=== PATIENT | female | born 1975 | race Two or more races ===

== ENCOUNTER → 2016-06-01 | Outpatient (CLI) | payer OTHER ==
--- NOTE | 2016-06-02 14:00 | MM ---
Reason for exam: screening (asymptomatic). Last mammogram was performed 1 year and 1 month ago. History: Took hormonal contraceptives for 6 years beginning at age 19. Physical Findings: A clinical breast exam by your physician is recommended on an annual basis and results should be correlated with mammographic findings. MG Screening Mammo w CAD Bilateral CC and MLO view(s) were taken. Prior study comparison: May 13, 2015, bilateral MG screening mammo w CAD. May 02, 2014, right breast MG work up mamm w CAD RT. April 28, 2014, bilateral MG screening mammo w CAD. The breast tissue is heterogeneously dense. This may lower the sensitivity of mammography. No significant changes when compared with prior studies. ASSESSMENT: Negative, BI-RAD 1 RECOMMENDATION: Routine screening mammogram of both breasts in 1 year.
== END | disposition home or self-care (01) ==
LOC: RADMAMWWP 16:49
PROVIDERS: ATTEND Family Medicine
DX: Z12.31 Encounter for screening mammogram for malignant neoplasm of breast (principal)

== ENCOUNTER 2016-10-05 12:09 | Day surgery (SDC) | payer OTHER ==
[2016-10-05] MEDS ORDERED: ALPRAZolam 0.5 MG TAB PO ONE (12:26)
[2016-10-05 12:50] VITALS: RESP 14; TEMP 97.8
[2016-10-05 13:37] VITALS: BP 103/63; PULSE 56
--- NOTE | 2016-10-05 13:46 | US ---
EXAMINATION TYPE: US FNA thyroid DATE OF EXAM: 10/05/2016 COMPARISON: NONE HISTORY: Thyroid nodule, E04.1 Maximal barrier technique was utilized. Ultrasound using sterile technique. The skin overlying the no dule was localized with ultrasound and the overlying skin prepped and draped. Lidocaine used for loca l anesthesia. 5 passes with a 25-gauge needle were made into the nodule under ultrasound guidance. As pirate specimen submitted to cytology. Following the procedure hemostasis achieved. No immediate comp lication IMPRESSION: Status post ultrasound-guided fine-needle aspiration of thyroid nodule, pathology pending .
== END 2016-10-05 13:45 | disposition home or self-care (01) ==
LOC: RADPROMAIN 12:09
PROVIDERS: ATTEND Surgery
DX: E04.1 Nontoxic single thyroid nodule (principal)
CPT/HCPCS: 10022; 76942; 88173; 88305

== ENCOUNTER → 2017-08-10 | Outpatient (CLI) | payer OTHER ==
--- NOTE | 2017-08-11 09:10 | MM ---
Reason for exam: screening (asymptomatic). Last mammogram was performed 1 year and 2 months ago. History: Took hormonal contraceptives for 6 years beginning at age 19. Physical Findings: A clinical breast exam by your physician is recommended on an annual basis and results should be correlated with mammographic findings. MG Screening Mammo w CAD Bilateral CC and MLO view(s) were taken. Prior study comparison: June 01, 2016, bilateral MG screening mammo w CAD. May 13, 2015, bilateral MG screening mammo w CAD. The breast tissue is heterogeneously dense. This may lower the sensitivity of mammography. There is no discrete abnormality. ASSESSMENT: Negative, BI-RAD 1 RECOMMENDATION: Routine screening mammogram of both breasts in 1 year.
== END | disposition home or self-care (01) ==
LOC: RADMAMWWP 13:05
PROVIDERS: ATTEND Family Medicine
DX: Z12.31 Encounter for screening mammogram for malignant neoplasm of breast (principal)
CPT/HCPCS: 77067

== ENCOUNTER → 2017-10-26 | Outpatient (CLI) | payer OTHER ==
--- NOTE | 2017-10-26 11:30 | US ---
EXAMINATION TYPE: US thyroid st tissue head/neck DATE OF EXAM: 10/26/2017 COMPARISON: Thyroid biopsy dated 10/05/2016 CLINICAL HISTORY: E04.1 THYROID NODULE. Thyroid nodule. Hx of biopsy - normal. GLAND SIZE: Right Lobe: 4.2 x 1.5 x 1.7 cm Overall Parenchyma: homogenous Left Lobe: 4.7 x 1.5 x 1.3 cm Overall Parenchyma: homogeneous Isthmus Thickness: 0.2 cm NODULES RIGHT: # of nodules measured on right: 1 1. 1.2 X 0.9 x 0.7 cm hypoechoic nodule at the lower pole with well-defined margins. This nodule is taller than wide and shows intranodular vascularity. Prior size: No previous LEFT: # of nodules measured on left: 1 1. 0.6 X 0.5 x 0.3 cm hypoechoic solid nodule at the lower pole with well-defined margins. This no dule is taller than wide and shows no intranodular vascularity. Prior size: No previous ISTHMUS: # of nodules measured in the isthmus: 0 Bilateral neck scanned. Left prominent lymph node appearing lesion - 1.8 x 0.6 x 0.6 cm IMPRESSION: Previously biopsied 1.2 cm right thyroid nodule and subcentimeter left thyroid nodule for which surve illance could be performed. Otherwise, the thyroid gland is homogeneous.
== END | disposition home or self-care (01) ==
LOC: RADUSWWP 09:43
PROVIDERS: ATTEND Surgery
DX: E04.2 Nontoxic multinodular goiter (principal)
CPT/HCPCS: 76536

== ENCOUNTER → 2019-03-04 | Outpatient (CLI) | payer OTHER ==
[2019-03-04 17:12] LABS: Chol/HDL Ratio 3.56; LDL Cholesterol,Calculated 111.6 mg/dL (0.0-131.0); VLDL Calculation 16.4 mg/dL (5.00-40.00)
[2019-03-04 18:30] LABS: Hemoglobin A1C 4.5 % (4.0-6.0)
== END ==
LOC: LABWHC1 10:29
PROVIDERS: ATTEND Nurse Practitioner Family
DX: Z00.00 Encounter for general adult medical examination without abnormal findings (principal); E55.9 Vitamin D deficiency, unspecified
CPT/HCPCS: 36415; 80061; 82306; 83036

== ENCOUNTER → 2019-09-20 | Outpatient (CLI) | payer OTHER ==
--- NOTE | 2019-09-23 08:45 | MM ---
Reason for exam: screening (asymptomatic). Last mammogram was performed 1 year ago. History: Took hormonal contraceptives for 6 years beginning at age 19. Physical Findings: A clinical breast exam by your physician is recommended on an annual basis and results should be correlated with mammographic findings. MG Screening Mammo w CAD Bilateral CC and MLO view(s) were taken. Prior study comparison: September 10, 2018, bilateral MG screening mammo w CAD. August 10, 2017, bilateral MG screening mammo w CAD. The breast tissue is heterogeneously dense. This may lower the sensitivity of mammography. There is no discrete abnormality. No significant changes when compared with prior studies. ASSESSMENT: Negative, BI-RAD 1 RECOMMENDATION: Routine screening mammogram of both breasts in 1 year.
== END | disposition home or self-care (01) ==
LOC: RADMAMWWP 08:26
PROVIDERS: ATTEND Family Medicine
DX: Z12.39 Encounter for other screening for malignant neoplasm of breast (principal)
CPT/HCPCS: 77067

== ENCOUNTER → 2020-07-02 | Outpatient (CLI) | payer OTHER | END | disposition home or self-care (01) | LOC: LABWHC1 14:45 | PROVIDERS: ATTEND Family Medicine | DX: Z20.822 Contact with and (suspected) exposure to COVID-19 (principal); J06.9 Acute upper respiratory infection, unspecified | CPT/HCPCS: 87502; U0003; C9803; U0005 ==

== ENCOUNTER → 2020-09-21 | Outpatient (CLI) | payer OTHER ==
--- NOTE | 2020-09-22 12:26 | MM ---
Reason for exam: screening (asymptomatic). Last mammogram was performed 1 year ago. History: Took hormonal contraceptives for 6 years beginning at age 19. Physical Findings: A clinical breast exam by your physician is recommended on an annual basis and results should be correlated with mammographic findings. MG Screening Mammo w CAD Bilateral CC and MLO view(s) were taken. Prior study comparison: September 20, 2019, bilateral MG screening mammo w CAD. September 10, 2018, bilateral MG screening mammo w CAD. The breast tissue is heterogeneously dense. This may lower the sensitivity of mammography. There is a possible mass in the right upper outer posterior breast and diagnostic mammogram is recommended. ASSESSMENT: Incomplete: need additional imaging evaluation, BI-RAD 0 RECOMMENDATION: Special view mammogram of the right breast. If lesion persists on supplemental views, image directed ultrasound is recommended. [facility] will attempt to contact patient to return for supplemental views and ultrasound if indicated.
== END | disposition home or self-care (01) ==
LOC: RADMAMWWP 08:26
PROVIDERS: ATTEND Family Medicine
DX: Z12.39 Encounter for other screening for malignant neoplasm of breast (principal)
CPT/HCPCS: 77067

== ENCOUNTER → 2020-09-25 | Outpatient (CLI) | payer OTHER ==
--- NOTE | 2020-09-25 10:12 | USB ---
EXAMINATION TYPE: US breast workup limited RT DATE OF EXAM: 09/25/2020 COMPARISON: Mammogram same date, mammogram 09/20/2019 CLINICAL HISTORY: R92.8 abnormal mammogram. Findings: The right breast was scanned with ultrasound from 9-12 o'clock, the retroareolar region and axilla. In the right breast at 10:00, there is a 1.1 x 0.6 x 0.9 cm lobulated hypoechoic lesion which corresp onds well in size, location and morphology to the asymmetry on mammogram. This asymmetry was unchange d since mammograms dating back to 2019 and was probably present on earlier mammograms. IMPRESSION: 6 month ultrasound follow-up is recommended for the hypoechoic lesion in the right breast at 10:00 me asuring up to 1.1 cm. BI-RADS 3, probably benign.
--- NOTE | 2020-09-25 12:00 | MM ---
Reason for exam: additional evaluation requested from abnormal screening. Last mammogram was performed less than 1 month ago. History: Took hormonal contraceptives for 6 years beginning at age 19. Physical Findings: Nurse did not find any significant physical abnormalities on exam. MG Work Up Mamm w CAD RT CC and MLO view(s) were taken of the right breast. Prior study comparison: September 21, 2020, bilateral MG screening mammo w CAD. September 20, 2019, bilateral MG screening mammo w CAD. The breast tissue is heterogeneously dense. This may lower the sensitivity of mammography. There is a right upper outer far posterior mass measuring 1cm enlarged since 2019 and ultrasound recommended. These results were verbally communicated with the patient and result sheet given to the patient on 09/25/20. ASSESSMENT: Incomplete: need additional imaging evaluation, BI-RAD 0 RECOMMENDATION: Ultrasound of the right breast. [facility]
== END | disposition home or self-care (01) ==
LOC: RADMAMWWP 09:12
PROVIDERS: ATTEND Family Medicine
DX: R92.8 Other abnormal and inconclusive findings on diagnostic imaging of breast (principal)
CPT/HCPCS: 77065

== ENCOUNTER → 2020-09-30 | Outpatient (CLI) | payer OTHER ==
--- NOTE | 2020-10-01 03:09 | MR ---
EXAMINATION TYPE: MR ankle LT wo con DATE OF EXAM: 09/30/2020 COMPARISON: None HISTORY: Left foot swelling and pain for months Multiplanar multiecho imaging of the left ankle without contrast. Achilles tendon is intact. Plantar fascia appears intact. Medial and lateral flexor tendons appear in tact. The ankle mortise is anatomic. The collateral ligaments appear intact. There is increased signa l on both sides of the navicular cuneiform joint on the medial aspect of the foot. I see no fracture line. The subtalar joint is intact. The talus is intact. There is minimal subcutaneous edema over the lower lateral fibula. IMPRESSION: There is some edema on both sides of the navicular cuneiform joint consistent with bone bruise and ar thritic disease and degenerative cyst formation. No fracture line seen. No evidence of ligament or te ndon tear..
== END | disposition home or self-care (01) ==
LOC: RADMRIMAIN 17:54
DX: R60.9 Edema, unspecified (principal); M76.819 Anterior tibial syndrome, unspecified leg

== ENCOUNTER → 2021-04-30 | Outpatient (CLI) | payer OTHER ==
--- NOTE | 2021-04-30 08:14 | USB ---
Reason for exam: clinical finding. History: Took hormonal contraceptives for 6 years beginning at age 19. Physical Findings: Nurse did not find any significant physical abnormalities on exam. US Breast Limited RT Right limited breast ultrasound including focal area of concern, retroareolar and axilla demonstrates a 1.0 x 0.5 x 0.7cm lesion at 10 o'clock and a 1.3 x 0.7 x 0.6cm lesion at the axilla. Continued follow up. These results were verbally communicated with the patient and result sheet given to the patient on 04/30/21. ASSESSMENT: Probably benign, BI-RAD 3 RECOMMENDATION: Follow-up diagnostic mammogram of both breasts in 5 months. Ultrasound of the right breast in 5 months. Back on schedule for September 2021.
== END | disposition home or self-care (01) ==
LOC: RADUSWWP 07:00
PROVIDERS: ATTEND Family Medicine
DX: N64.89 Other specified disorders of breast (principal)

== ENCOUNTER → 2021-09-21 | Outpatient (CLI) | payer OTHER ==
--- NOTE | 2021-09-21 14:03 | MM ---
Reason for Exam: Follow-up at short interval from prior study. Last screening mammogram was performed 12 month(s) ago. Patient History: Menarche at age 11. First Full-Term at age 24. Hormonal Contraceptives for 6 years from age 19 until age 27. Risk Values: Kaylynn 5 year model risk: 1.0%. NCI Lifetime model risk: 10.3%. Prior Study Comparison: 09/20/2019 Bilateral Screening Mammogram, [facility]. 09/21/2020 Bilateral Screening Mammogram, [facility]. 09/25/2020 Right Diagnostic Mammogram, [facility]. Tissue Density: The breast tissue is heterogeneously dense. This may lower the sensitivity of mammography. Findings: Mammogram Stable nodular density upper outer right breast at the 10:00 position dating back to 2018. No new nodules are seen. No suspicious calcifications evident.. Findings: Right breast 1000 8cfn = 0.9 x 0.6 x 0.5 cm slightly smaller in size from prior study. Right breast 1100 8 cfn= 0.5 x 0.5 x 0.3 cm hyperdense lesion likely reflects lipoma. Overall Assessment: Probably benign, BI-RAD 3 Assessment: MG diagnostic mammo w CAD ROSENDA - Bilateral: Incomplete: need additional imaging evaluation, BI-RAD 0 - Right. US breast limited RT - Right: Probably benign, BI-RAD 3. Management: Diagnostic Breast Ultrasound of the right breast in 6 months. A clinical breast exam by your physician is recommended on an annual basis and results should be correlated with mammographic findings. Results were given to the patient verbally at the time of exam. Electronically signed and approved by: Samuel Brice M.D. Radiologis
== END | disposition home or self-care (01) ==
LOC: RADMAMWWP 13:04
PROVIDERS: ATTEND Family Medicine
DX: N60.01 Solitary cyst of right breast (principal); N63.10 Unspecified lump in the right breast, unspecified quadrant
CPT/HCPCS: 77066

== ENCOUNTER → 2022-03-28 | Outpatient (CLI) | payer OTHER ==
--- NOTE | 2022-03-28 08:39 | MM ---
Reason for Exam: Follow-up at short interval from prior study. Last screening mammogram was performed 6 month(s) ago. Patient History: Menarche at age 11. First Full-Term at age 24. Hormonal Contraceptives for 6 years from age 19 until age 27. Last menstrual period: 03/25/2022 Risk Values: Kaylynn 5 year model risk: 1.0%. NCI Lifetime model risk: 10.2%. Prior Study Comparison: 09/21/2020 Bilateral Screening Mammogram, [facility]. 09/25/2020 Right Diagnostic Mammogram, [facility]. 09/21/2021 Bilateral MG diagnostic mammo w CAD ROS[facility], [facility]. Tissue Density: The breast tissue is heterogeneously dense. This may lower the sensitivity of mammography. Findings: Analyzed By CAD. Stable nodular density in the upper-outer right breast at 10:00 position. No new nodules seen in the right breast. No suspicious calcifications within either breast. Prominent 6 mm mass within the left breast at middle depth at 4:00 best appreciated on the CC view. Overall Assessment: Incomplete: need additional imaging evaluation, BI-RAD 0 Management: Diagnostic Breast Ultrasound of both breasts. A clinical breast exam by your physician is recommended on an annual basis and results should be correlated with mammographic findings. This exam should not preclude additional follow-up of suspicious palpable abnormalities. Results were given to the patient verbally at the time of exam. Electronically signed and approved by: Ronald Lester D.O.
--- NOTE | 2022-03-28 08:51 | USB ---
Reason for Exam: Follow-up at short interval from prior study. Patient History: Menarche at age 11. First Full-Term at age 24. Hormonal Contraceptives for 6 years from age 19 until age 27. Risk Values: Kaylynn 5 year model risk: 1.0%. NCI Lifetime model risk: 10.2%. Prior Study Comparison: 09/21/2020 Bilateral Screening Mammogram, [facility]. 09/25/2020 Right Diagnostic Mammogram, [facility]. 09/21/2021 Bilateral MG diagnostic mammo w CAD [facility], [facility]. Findings: The lateral section of the breast of the left breast, the axilla of the left breast and the retroareolar of the left breast were scanned. Targeted ultrasound of the left breast from 12-6 o'clock was performed with additional evaluation the nipple and axilla. There is a simple cyst and the left breast at 4:00 3 cm the nipple measuring 5 x 3 x 3 mm. Additional region of [place] of dense breast tissue within the left breast at 3:00 to sagittally the nipple. Targeted ultrasound of the right breast at 10:00 demonstrates a marginal increase in size of circumscribed hypoechoic ovoid mass 8 cm from the nipple measuring 10 x 6 x 10 cm. No posterior acoustic features. This is marginally increased in size in prior examination when it measured 9 x 6 x 5 mm. Stable hyperechoic mass within the right breast at 11:00 a sagittal nipple measuring 4 x 4 by 5 mm favored to represent a lipoma. Additional evaluation of the nipple and axilla was performed without suspicious abnormality. Overall Assessment: Probably benign, BI-RAD 3 Management: Diagnostic Breast Ultrasound of the right breast in 6 months. A clinical breast exam by your physician is recommended on an annual basis and results should be correlated with mammographic findings. This exam should not preclude additional follow-up of suspicious palpable abnormalities. Results were given to the patient verbally at the time of exam. Electronically signed and approved by: Ronald Lester D.O.
== END | disposition home or self-care (01) ==
LOC: RADMAMWWP 07:39
DX: R92.8 Other abnormal and inconclusive findings on diagnostic imaging of breast (principal)
CPT/HCPCS: 77066

== ENCOUNTER → 2022-09-23 | Outpatient (CLI) | payer OTHER ==
--- NOTE | 2022-09-23 09:48 | USB ---
Reason for Exam: Follow-up at short interval from prior study. Patient History: Menarche at age 11. First Full-Term at age 24. Hormonal Contraceptives for 6 years from age 19 until age 27. Risk Values: Kaylynn 5 year model risk: 1.0%. NCI Lifetime model risk: 10.2%. Technique: Method: Targeted. Prior Study Comparison: 09/25/2020 Right Diagnostic Mammogram, [facility]. 09/21/2021 Bilateral MG diagnostic mammo w CAD [facility], [facility]. 03/28/2022 Bilateral MG diagnostic mammo w CAD [facility], [facility]. Findings: The upper outer quadrant of the right breast, the axilla of the right breast and the retroareolar of the right breast were scanned. At the 10:00 position there is a 0.9 x 0.5 x 0.8 cm hypoechoic area. This area is stable from comparison. At the 11:00 position 8 cm from the nipple is a 0.5 x 0.4 x 0.5 cm hyperechoic area. The borders are somewhat irregular. This was present previously may be a small lipoma. Continued monitoring is recommended. Overall Assessment: Probably benign, BI-RAD 3 Management: Screening Mammogram of both breasts in 6 months. Diagnostic Breast Ultrasound of the right breast. A clinical breast exam by your physician is recommended on an annual basis and results should be correlated with mammographic findings. This exam should not preclude additional follow-up of suspicious palpable abnormalities. Results were given to the patient verbally at the time of exam. Electronically signed and approved by: Ivan Rivera D.O. Radiologis
== END | disposition home or self-care (01) ==
LOC: RADUSWWP 08:59
DX: R92.8 Other abnormal and inconclusive findings on diagnostic imaging of breast (principal)

== ENCOUNTER 2023-01-20 08:56 | Day surgery (SDC) | payer OTHER ==
[2023-01-20] MEDS ORDERED: LACTATED RINGERS 1,000 ML IV ONE (09:38)
[2023-01-20] MEDS ORDERED: LIDOCAINE 1% INJ 10MG/ML (20 ML MDV) ONE (09:41)
[2023-01-20] MEDS ORDERED: PROPOFOL 10 MG/ML 20 ML VIAL IV ONE (09:41)
[2023-01-20 10:01] VITALS: TEMP 98.3
--- NOTE | 2023-01-20 10:11 | P.PCN ---
Date of Procedure: 01/20/23 Procedure(s) Performed: BRIEF HISTORY: Patient is a 47-year-old pleasant white female scheduled for an elective colonoscopy as a part of screening for colon cancer. PROCEDURE PERFORMED: Colonoscopy with snare polypectomy. PREOPERATIVE DIAGNOSIS: Screening for colon cancer. IV sedation per Anesthesia. PROCEDURE: After informed consent was obtained, the patient, was brought into the endoscopy unit. IV sedation was administered by Anesthesia under continuous monitoring. Digital rectal examination was normal. Initially the Olympus CF-160 flexible video colonoscope was then inserted in the rectum, gradually advanced into the cecum without any difficulty. Careful examination was performed as the scope was gradually being withdrawn. Ileocecal valve and the appendiceal orifice were visualized and appeared normal. Prep was excellent. Mucosa of the cecum, appeared normal. On the ileocecal valve there was a 7 mm polyp that was removed by snare polypectomy. Rest of the ascending colon, transverse colon, descending colon, sigmoid colon, and rectum appeared normal. Retroflexion was performed in the rectum and no lesions were seen. The patient tolerated the procedure well. IMPRESSION: 7 mm cecal polyp status post polypectomy Rest of the colon appeared normal. RECOMMENDATIONS: Findings of this examination were discussed with the patient as well as a family. She was advised to follow with the biopsy results. If the biopsies adenoma she can have a repeat colonoscopy in 5 years..
[2023-01-20 10:51] VITALS: BP 110/58; PULSE 48; RESP 18
== END 2023-01-20 11:00 | disposition home or self-care (01) ==
LOC: ORWHC2ENDO 08:56
PROVIDERS: ATTEND Internal Medicine Gastroenterology
DX: Z12.11 Encounter for screening for malignant neoplasm of colon (principal); D12.0 Benign neoplasm of cecum; J45.909 Unspecified asthma, uncomplicated; Z79.51 Long term (current) use of inhaled steroids; Z79.899 Other long term (current) drug therapy; Z98.890 Other specified postprocedural states
CPT/HCPCS: 81025; 88305; 45385; J2001; J2704

== ENCOUNTER → 2023-02-14 | Outpatient (CLI) | payer OTHER | LOC: CPPFTMAIN 14:53 | PROVIDERS: ATTEND Family Medicine | DX: J45.20 Mild intermittent asthma, uncomplicated (principal) | CPT/HCPCS: 94060; 94726; 94729 ==

== ENCOUNTER → 2023-02-27 | Outpatient (CLI) | payer OTHER ==
--- NOTE | 2023-02-28 10:44 | MR ---
EXAMINATION TYPE: MR foot LT wo con DATE OF EXAM: 02/27/2023 COMPARISON: Left ankle MRI 09/30/2020 HISTORY: Left foot pain in the arch of foot marked with a bead, Prior MRI of ankle in PACS TECHNIQUE: Multiplanar, multisequence images of the left foot were acquired without contrast. FINDINGS: BONES/CARTILAGE/JOINT: Degenerative bone marrow edema in the navicular bone and the medial cuneiform, associated 6 mm gangli on cyst within the navicular; these degenerative findings have progressed from the prior exam. Articu lar cartilage thinning and fibrillation involving these bones. Small degenerative joint effusion first metatarsophalangeal joint. LIGAMENTS: Spring ligament is normal. Lisfranc ligament normal. Normal plantar plates. TENDONS: Flexor tendons are normal. Extensor tendons are normal. SOFT TISSUES: No bursal distention. No intermetatarsal bursa or soft tissue mass. Sinus tarsi is normal. Plantar fascia is normal. Neurovascular structures are normal. IMPRESSION: 1. 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 2. Small first MTP joint effusion, likely degenerative.
== END | disposition home or self-care (01) ==
LOC: RADMRIMAIN 20:30
PROVIDERS: ATTEND Podiatrist Foot & Ankle Surgery
DX: M25.475 Effusion, left foot (principal); M67.472 Ganglion, left ankle and foot; M94.272 Chondromalacia, left ankle and joints of left foot

== ENCOUNTER → 2023-03-27 | Outpatient (CLI) | payer OTHER ==
--- NOTE | 2023-03-27 08:27 | MM ---
Reason for Exam: Clinical finding. Last screening mammogram was performed 12 month(s) ago. Patient History: Menarche at age 11. First Full-Term at age 24. Premenopausal. Hormonal Contraceptives for 6 years from age 19 until age 27. Risk Values: Kalyynn 5 year model risk: 0.7%. NCI Lifetime model risk: 7.1%. Tissue Density: The breast tissue is heterogeneously dense. This may lower the sensitivity of mammography. Findings: Analyzed By CAD. Chronic nodularity posterior superior right MLO view. Chronic nodularity central left MLO view middle depth particularly apparent on gradient images. No significant change from prior exams. Overall Assessment: Benign, BI-RAD 2 Management: Screening Mammogram of both breasts in 1 year. . Results were given to the patient verbally at the time of exam. Patient should continue monthly self-breast exams. A clinical breast exam by your physician is recommended on an annual basis. This exam should not preclude additional follow-up of suspicious palpable abnormalities. Note on Kaylynn scores and lifetime risk: 1. A Kaylynn score greater than 3% is considered moderate risk. If this is the case, consider specialist referral to assess eligibility for a risk reducing agent. 2. If overall lifetime risk for the development of breast cancer is 20% or higher, the patient may qualify for future screening with alternating mammogram and breast MRI. Electronically signed and approved by: Kemi Hu M.D. Radiologist
== END | disposition home or self-care (01) ==
LOC: RADMAMWWP 07:09
DX: R92.333 Mammographic heterogeneous density, bilateral breasts (principal)
CPT/HCPCS: 77062; 77066

== ENCOUNTER → 2023-11-08 | Outpatient (CLI) | payer OTHER ==
--- NOTE | 2023-11-08 18:50 | XR ---
EXAMINATION TYPE: XR chest 2V DATE OF EXAM: 11/08/2023 COMPARISON: 03/09/2012 INDICATION: Mild intermittent asthma, wheezing TECHNIQUE: Frontal and lateral views of the chest are obtained. FINDINGS: The heart size is normal. The pulmonary vasculature is normal. The lungs are clear. No suspicious peribronchial thickening evident. IMPRESSION: 1. No acute pulmonary process radiographically apparent.
== END | disposition home or self-care (01) ==
LOC: RADXRMAIN 17:22
PROVIDERS: ATTEND Nurse Practitioner Family
DX: J45.20 Mild intermittent asthma, uncomplicated (principal)
CPT/HCPCS: 71046

== ENCOUNTER → 2024-03-28 | Outpatient (CLI) | payer OTHER ==
--- NOTE | 2024-03-29 08:31 | MM ---
Reason for Exam: Screening (asymptomatic). Last screening mammogram was performed 12 month(s) ago. Patient History: Menarche at age 11. First Full-Term at age 24. Premenopausal. Hormonal Contraceptives for 6 years from age 19 until age 27. Risk Values: Kaylynn 5 year model risk: 0.8%. NCI Lifetime model risk: 7.0%. Prior Study Comparison: 09/21/2021 Bilateral MG diagnostic mammo w CAD [facility], [facility]. 03/28/2022 Bilateral MG diagnostic mammo w CAD [facility], [facility]. 03/27/2023 Bilateral MG 3D diag mammo w/cad [facility], [facility]. Tissue Density: The breasts are heterogeneously dense, which may obscure small masses. Findings: Analyzed By CAD. Benign-appearing bilateral axillary lymph nodes are redemonstrated. There is no suspicious group of microcalcifications or new suspicious mass in either breast. Overall Assessment: Negative, BI-RAD 1 Management: Screening Mammogram of both breasts in 1 year. Some advise bilateral breast ultrasound surveillance in patient with background dense tissue. Patient should continue monthly self-breast exams. A clinical breast exam by your physician is recommended on an annual basis. This exam should not preclude additional follow-up of suspicious palpable abnormalities. Note on Kaylynn scores and lifetime risk: 1. A Kaylynn score greater than 3% is considered moderate risk. If this is the case, consider specialist referral to assess eligibility for a risk reducing agent. 2. If overall lifetime risk for the development of breast cancer is 20% or higher, the patient may qualify for future screening with alternating mammogram and breast MRI. [facility], , 03/29/2024 7:34 AM. Electronically signed and approved by: Seth Sofia M.D.
== END | disposition home or self-care (01) ==
LOC: RADMAMWWP 16:42
PROVIDERS: ATTEND Family Medicine
DX: Z12.31 Encounter for screening mammogram for malignant neoplasm of breast (principal); R92.333 Mammographic heterogeneous density, bilateral breasts
CPT/HCPCS: 77067